=== PATIENT | male | born 1965 | race Caucasian/White ===

== ENCOUNTER 2017-11-23 17:54 | Emergency (ER) | payer OTHER, MEDICAID, SELFPAY ==
--- NOTE | 2017-11-23 18:11 | DI.RAD.S_ITS ---
PROCEDURE: XR CHEST 1V INDICATIONS: chest pain TECHNIQUE: One view of the chest was acquired. COMPARISON: None. FINDINGS: Surgical changes and devices: None. Lungs and pleura: No pleural effusions or pneumothorax. Lungs are clear. Mediastinum: Mediastinal contours appear normal. Heart size is normal. Bones and chest wall: No suspicious bony lesions. Overlying soft tissues appear unremarkable. IMPRESSION: No acute process. Dictated by: Sreekanth Lam M.D. on 11/23/2017 at 18:31 Approved by: Sreekanth Lam M.D. on 11/23/2017 at 18:31
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
[2017-11-23 18:16] VITALS: BP 140/92; PULSE 97; RESP 12; TEMP 36.9; O2SAT 97; BMI 41.1
[2017-11-23 18:26] LABS: Add Manual Diff / Slide Review NO; Basophils Percent Auto 0.8 % (0-2); Hematocrit 43.4 % (41-53); Hemoglobin 15.2 g/dL (13.5-17.5); Lymphocytes Percent Auto 26.4 % (25-40); Mean Corpuscular Hemoglobin 32.1 PG (26-34); Mean Corpuscular Volume 91.9 fL (80-100); Monocytes Percent Auto 7.4 % (3-14); Neutrophils Absolute Auto 5700 /uL (3000-5900); Neutrophils Percent Auto 63.4 % (50-75); Platelet Count 162 X10^3/uL (150-400); Red Blood Cell Count 4.72 X10^6/uL (4.5-5.9); Red Cell Distribution Width 12.9 % (11.6-14.8); White Blood Cell Count 8.9 X10^3/uL (4.5-11.0)
[2017-11-23] MEDS: SODIUM CHLORIDE 0.9% 1,000 ML 150 ML IV (18:26)
[2017-11-23] MEDS: KETOROLAC 60 MG/2 ML VIAL 15 MG IV (18:27)
[2017-11-23] MEDS: ASPIRIN 81 MG TAB 324 MG PO (18:27)
[2017-11-23 18:45] LABS: Alanine Aminotransferase 51 IU/L (21-72); Albumin 4.6 g/dL (3.5-5.0); Albumin Globulin Ratio 1.7 (1.0-2.8); Alkaline Phosphatase 84 U/L (38-126); Aspartate Aminotransferase 33 IU/L (17-59); Bilirubin Total 0.5 mg/dL (0.2-1.3); Blood Urea Nitrogen 17 mg/dL (9-20); Calcium 9.7 mg/dL (8.4-10.2); Carbon Dioxide 27 mmol/L (22-32); Chloride 102 mmol/L (98-107); Creatine Kinase 384 U/L (55-170); Estimated Glomerular Filt Rate > 60.0 mL/min (>60); Globulin 2.7 g/dL (1.7-4.1); Glucose 124 mg/dL (70-100); HEMOLYSIS < 15 (0-50); Lipase 216 U/L (23-300); Potassium 4.2 mmol/L (3.4-5.1); Sodium 143 mmol/L (137-145); Total Protein 7.3 g/dL (6.3-8.2)
[2017-11-23 18:59] LABS: Troponin I < 0.012 ng/mL (0.01-0.034)
[2017-11-23 19:00] LABS: Creatine Kinase MB 7.59 ng/mL (<2.37)
[2017-11-23 19:35] VITALS: BP 137/86; PULSE 84; RESP 16; O2SAT 95
[2017-11-23 20:37] VITALS: BP 137/79; PULSE 79; RESP 17; O2SAT 95
[2017-11-23 21:19] LABS: Creatine Kinase 313 U/L (55-170)
[2017-11-23 21:34] LABS: CKMB % Relative Index 1.8 % (1.5-5.0); Creatine Kinase MB 5.67 ng/mL (<2.37)
[2017-11-23 21:35] LABS: Troponin I < 0.012 ng/mL (0.01-0.034)
[2017-11-23 21:40] VITALS: BP 143/83; PULSE 77; RESP 17; O2SAT 96
[2017-11-23 22:06] VITALS: BP 134/76; PULSE 75; RESP 16; O2SAT 97
[2017-11-23] MEDS: HYDROCODONE/ACET 5/325 PREPACK 1 BOTTLE MISC (22:21)
== END 2017-11-23 22:44 | disposition home or self-care (01) ==
PROVIDERS: Emergency Provider Emergency Medicine
DX: R07.89 Other chest pain (principal); S46.912A Strain of unspecified muscle, fascia and tendon at shoulder and upper arm level, left arm, initial encounter
CPT/HCPCS: 29240; 36415; 36591; 71045; 80053; 82550; 82553; 83690; 84484; 85025; 93005; 93041; 96361; 96374; 99284; 99285; J1885